=== PATIENT | female | born 1970 | race Hispanic/Latino ===

== ENCOUNTER 2024-02-08 05:37 | Day surgery (SDC) | payer OTHER, MEDICARE ==
[2024-02-06 11:52] LABS: BASOPHILS # (AUTO) 0.08 K/uL (0.00-0.20); BASOPHILS % (AUTO) 1.2 % (0.0-5.0); EOSINOPHILS # (AUTO) 0.22 K/uL (0.00-0.70); EOSINOPHILS % (AUTO) 3.4 % (0.0-8.0); HEMATOCRIT 39.8 % (36-48); IMMATURE GRANULOCYTE ABSOLUTE 0.01 K/uL (0-1); LYMPHOCYTES # (AUTO) 2.6 K/uL (1.0-4.8); LYMPHOCYTES % (AUTO) 39.7 % (21.0-51.0); MEAN CORPUSCULAR HEMOGLOBIN 35.3 pg (27.0-33.0); MEAN CORPUSCULAR HGB CONC 32.2 g/dL (32.0-36.0); MEAN CORPUSCULAR VOLUME 109.6 fL (79-99); MONOCYTES # (AUTO) 0.4 K/uL (0.1-1.0); MONOCYTES % (AUTO) 6.4 % (3.0-13.0); NEUTROPHILS # (AUTO) 3.2 K/uL (1.8-7.7); NEUTROPHILS % (AUTO) 49.1 % (40.0-77.0); PLATELET COUNT (AUTO) 153 K/uL (130-400); RED BLOOD CELL COUNT(AUTO) 3.63 MIL/uL (4.00-5.50); RED CELL DISTRIBUTION WIDTH 15.4 % (11.0-15.5); WHITE BLOOD COUNT (AUTO) 6.5 K/uL (4.8-10.8)
[2024-02-06 12:22] LABS: INR <= 0.93 (0.85-1.15); PROTHROMBIN TIME 10.9 SEC (9.6-11.6)
[2024-02-06 12:23] LABS: CREATININE 4.7 mg/dL (0.5-1.0); PARTIAL THROMBOPLASTIN TIME 29.7 SEC (26.3-35.5); POTASSIUM 4.3 mmol/L (3.5-5.1)
[2024-02-06 12:36] VITALS: BP 157/83; PULSE 71; RESP 18
[2024-02-06 12:45] LABS: B-TYPE NATRIURETIC PEPTIDE 984 pg/mL (0-100)
[2024-02-08] VITALS (9 sets, daily range): BP systolic 100–186; BP diastolic 34–79; PULSE 68–81; RESP 14–16
[~2024-02-08] VITALS: Ht 152.4 cm; Wt 59.3 kg
[2024-02-08] MEDS ORDERED: ERGO2000 PO (07:05)
[2024-02-08] MEDS ORDERED: TRAZ-185 PO (07:05)
[2024-02-08] MEDS ORDERED: ATOR10TA69 PO (07:05)
[2024-02-08] MEDS ORDERED: ASPI-1197 PO (07:05)
[2024-02-08] MEDS ORDERED: GABA-529 PO (07:05)
[2024-02-08] MEDS ORDERED: NIFE-39 PO (07:05)
[2024-02-08] MEDS ORDERED: CARV3.12 PO (07:05)
[2024-02-08] MEDS ORDERED: AMLO-257 PO (07:05)
[2024-02-08] MEDS ORDERED: IOHEXOL-350 75 ML VIAL IV ONE (07:20)
[2024-02-08] MEDS ORDERED: VERAPAMIL HCL 2.5 MG/ML VIAL ONE (07:20)
[2024-02-08] MEDS ORDERED: LIDOCAINE HCL 400MG/20ML VIAL ONE (07:20)
[2024-02-08] MEDS ORDERED: FENTANYL CITRATE PF 50 MCG/1 ML 2ML VIAL ONE (07:20)
[2024-02-08] MEDS ORDERED: HEPARIN 10,000 UNIT/10ML (1,000 UNIT/ML) VIAL ONE (07:20)
[2024-02-08] MEDS ORDERED: IOHEXOL 350 MG/ML 100ML INFUS..BTL IV ONE (07:20)
[2024-02-08] MEDS ORDERED: MIDAZOLAM HCL 1 MG/ML 2ML VIAL ONE ×2 (07:20→07:53)
[2024-02-08] MEDS ORDERED: NITROGLYCERIN 50MG VIAL ONE (07:21)
[2024-02-08] MEDS: 0.9%NACL 1000ML 1,000 ML IV ONE (07:26)
[2024-02-08] MEDS ORDERED: HYDRALAZINE 20MG/ML VIAL ONE (08:09)
[2024-02-08] MEDS ORDERED: DEXTROSE 50%-WATER 50 ML DISP.SYRIN IV PRN (08:30)
[2024-02-08] MEDS ORDERED: 0.9%NACL 1000ML 1,000 ML IV SCH (08:30)
[2024-02-08] MEDS ORDERED: GLUCAGON 1MG KIT 1 MG ML IM PRN (08:30)
[2024-02-08] MEDS ORDERED: PANTOPRAZOLE 40 MG/VIAL IVP ONE (09:00)
[2024-02-08] MEDS: PANTOPRAZOLE 40 MG/VIAL IVP SCH (12:13)
== END 2024-02-08 12:30 | disposition home or self-care (01) ==
LOC: DAH 05:37
PROVIDERS: ATTEND Student in an Organized Health Care Education/Training Program
DX: R07.9 Chest pain, unspecified (principal); I25.118 Atherosclerotic heart disease of native coronary artery with other forms of angina pectoris; I12.0 Hypertensive chronic kidney disease with stage 5 chronic kidney disease or end stage renal disease; E11.22 Type 2 diabetes mellitus with diabetic chronic kidney disease; N18.6 End stage renal disease; E03.9 Hypothyroidism, unspecified; E78.5 Hyperlipidemia, unspecified; Z82.49 Family history of ischemic heart disease and other diseases of the circulatory system; Z83.3 Family history of diabetes mellitus; Z80.9 Family history of malignant neoplasm, unspecified; Z88.8 Allergy status to other drugs, medicaments and biological substances; Z88.2 Allergy status to sulfonamides; Z88.6 Allergy status to analgesic agent; Z87.891 Personal history of nicotine dependence; Z79.82 Long term (current) use of aspirin; Z79.84 Long term (current) use of oral hypoglycemic drugs; Z79.899 Other long term (current) drug therapy; Z90.49 Acquired absence of other specified parts of digestive tract; Z90.710 Acquired absence of both cervix and uterus; Z98.890 Other specified postprocedural states
CPT/HCPCS: 80048; 83880; 85025; 85610; 85730; 36415; 93005 ×2; 71045; 93458; C1894 ×3; C1760; Q9965; J3010; J3490 ×2; J7030; J0360; J1644 ×2; J2250 ×2; C9113; Q9967; A4215; A4222; A4221; A4663; A4216; A4606; A4223 ×3; 99156; 99157